=== PATIENT | male | born 1995 | race Caucasian/White ===

== ENCOUNTER 2017-03-31 23:12 | Inpatient (IN) | payer BC ==
[~2017-03-31] VITALS: Ht 180.3 cm; Wt 61.2 kg
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
[2017-04-01 00:07] LABS: URINE APPEARANCE CLEAR (CLEAR); URINE BILIRUBIN NEG (NEG); URINE COLOR YELLOW; URINE NITRITE NEG (NEG); URINE SPECIFIC GRAVITY 1.031 (1.000-1.030); UROBILINOGEN NEG (NEG); ZZUR CULT IF INDIC CLEAN CATCH NO
[2017-04-01] MEDS ORDERED: MINO75CA2 PO (00:07)
[2017-04-01 00:16] LABS: MANUAL MICROSCOPIC REQUIRED? NO; REVIEW REQ? NO
[2017-04-01 00:24] LABS: BENZODIAZEPINE, URINE NEG (NEG); COCAINE,URINE NEG (NEG); PHENCYCLIDINE, URINE NEG (NEG)
[2017-04-01 00:32] LABS: BASO % 0.2 %; BASO ABS # 0.02 K/uL (0-0.2); COMPLETE YES; EOS % 0.3 %; HEMATOCRIT 43.6 % (42-52); IG% 0.2 %; LYMPH % 15.3 %; LYMPH ABS # 1.87 K/uL (1.2-3.4); MEAN CELL VOLUME 89.9 fL (80-100); MEAN CORPUSCULAR HEMOGLOBIN 31.1 pg (25-34); MEAN CORPUSCULAR HGB CONC 34.6 g/dl (32-36); MEAN PLATELET VOLUME 11.2 fL (7.4-10.4); MONO % 7.1 %; NEUT % 76.9 %; PLATELET COUNT 223 K/uL (130-400); RED BLOOD COUNT 4.85 M/uL (4.7-6.1); WHITE BLOOD COUNT 12.24 K/uL (4.8-10.8)
[2017-04-01 00:55] LABS: BUN/CREATININE RATIO 20.4 (10-20); CALCIUM 9.3 mg/dl (8.5-10.1); CREATININE 1.01 mg/dl (0.60-1.40); POTASSIUM 3.4 mmol/L (3.5-5.1)
[2017-04-01 01:05] LABS: ACETAMINOPHEN < 2 ug/ml (10-30)
[2017-04-01 01:06] LABS: ALB/GLOB RATIO 1.2 (0.9-2); THYROID STIMULATING HORMONE 1.22 uIu/ml (0.300-4.500)
[2017-04-01] MEDS ORDERED: NURSING VERBAL MED ORDER ONE (02:00)
[2017-04-01 02:13] VITALS: O2SAT 96
[2017-04-01 02:47] VITALS: BP 124/63; PULSE 78; TEMP 36.7; Ht 180.3 cm; Wt 61.2 kg
[2017-04-01] MEDS ORDERED: hydrOXYzine HCL 25 MG TAB PO PRN ×2 (03:30)
[2017-04-01] MEDS ORDERED: ACETAMINOPHEN 325 MG TAB PO PRN (03:30)
[2017-04-01] MEDS ORDERED: MAGNESIUM HYDROXIDE SUSP 30 ML UDC PO PRN (03:30)
[2017-04-01] MEDS ORDERED: ALUMINUM/MAGNESIUM SUSP 30 ML UDC PO PRN (03:30)
[2017-04-01] MEDS ORDERED: BISMUTH SUBSALICYLATE PER ML OMNICELL CHARGE PO PRN (03:30)
[2017-04-01] MEDS ORDERED: SODIUM CHLORIDE 0.65% NA SOLN 45 ML (OCEAN) PRN (03:30)
[2017-04-01 06:59] VITALS: BP_SYST 109; BP_SYST 121; BP_DIAS 58; BP_DIAS 72; PULSE 116; PULSE 63; TEMP 36.8
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
[2017-04-01] MEDS ORDERED: NICOTINE POLACRILEX 2 MG GUM MT PRN (11:45)
[2017-04-02 07:06] VITALS: BP_SYST 106; BP_SYST 98; BP_DIAS 63; BP_DIAS 72; PULSE 83; PULSE 91; TEMP 36.6
--- NOTE | 2017-04-02 10:42 | Psychiatric Progress Notes ---
Progress Note Date of Service Apr 02, 2017. Interval History 21-year-old man who came here from [place] to confront a girlfriend who broke up with him. He did something similar several days ago and left a letter indicating he would commit suicide. He is admitted voluntarily. Chief Complaint "Tired.". Subjective Patient was seen & assessed interval progress reviewed with Treatment Team. The patient says that he is tired today and is generally always tired. He denies depression or suicidality and says that he is not thinking about his ex girlfriend. I review with him, the information obtained from his mother and therapist indicating that his problems with anger and depression have been ongoing. He is no more forthcoming today than he was yesterday and does not engage in meaningful discussion. I review recommendations for an antidepressant and ask for his opinion, "I'm not the doctor.". He reports good sleep and appetite and is interested in getting a shower today. He talked with his mother by phone yesterday, but will say nothing about the conversation. She will not be travelling here to visit him and he will be taking a bus home at discharge. he has submitted his 72 hr notice to withdraw from treatment. Review of Systems Constitutional: + fatigue ENT: No hearing loss, No unusual epistaxis, No nasal symptoms, No sore throat, No tinnitus, No dental problems, No trouble swallowing, No problem reported Respiratory: No cough, No sputum, No wheezing, No shortness of breath, No dyspnea on exertion, No dyspnea at rest, No hemoptysis, No problem reported Cardiovascular: No chest pain, No orthopnea, No PND, No edema, No claudication , No palpitations, No problem reported Abdomen: No pain, No nausea, No vomiting, No diarrhea, No constipation, No GI bleeding, No problem reported Musculoskeletal: No joint pain, No muscle pain, No swelling, No calf pain, No problem reported Neurologic: No memory loss, No paralysis, No weakness, No numbness/tingling, No vertigo, No balance problems, No problem reported Psychiatric: No depression symptoms, No anhedonism, No anxiety, No insomnia, No substance abuse, No problem reported Integumentary: No rash, No itch, No new/changing skin lesions, No color change , No bleeding, No problem reported Sleep Information Total Hours of Sleep: 6.00 Meal Information Percent of Breakfast Consumed: 0 Percent of Lunch Consumed: 75 Percent of Dinner Consumed: 100 Mental Status Exam During interview pt is: alert and oriented, guarded Appearance: appropriately dressed Eye contact is: fair Motor behavior is: steady gait & station, no abnormal motor movements Speech: normal in rate, rhythm & volume Affect: flat Mood is: depressed, irritable Thought process: goal directed Thought content: reality based without delusions Suicidal thought are: present, Plan: denied, Intent: denied Homicidal thoughts are: denied Hallucinations: denies auditory, denies visual Cognition: memory grossly intact, attention grossly intact, language grossly intact Intelligence estimated to be: average Insight: impaired Judgement: impaired Impression Patient still resistant to treatment and not forthcoming. He has however agreed to a trial of zoloft which we will start today at 25 mg. R/B/A reviewed and accepted including black box warning. He has submitted his 72 hr notice which will on 04/04. I do not anticipate that he will need hospitalization beyond that point, and will need to help him explore the bus schedule back to [place] as well as arrange OP. Plan (1) unspecified depressive disorder 04/01 -The patient is sullen and poorly cooperative with interview. We will need to gather additional data from family and therapist - No medication recommendations at this time - Every 15 minute checks for safety - Encourage participation in group and individual counseling - Family meeting if indicated - Coordinate aftercare with current therapist 04/02 - Start Zoloft 25 mg. today increasing to 50 mg. tomorrow - Will need OP psychiatric prescriber - Staff to assist in exploring the bus schedule home. (2) Tobacco use disorder 04/01 - Advised to reduce or abstain from smoking Will offer nicotine patch or Nicorette gum if desired- Dr. Angela Woodruff is personally participated in the review and development of these recommendations. Discharge / Aftercare Planning Primary Care Physician: Name: Dr. Jarquin [facility]: Apr 06, 2017 Time of Appointment: 6 p.m. Head Porter: Name: Rachel Visit Code E&M Code: 87718 Inventory Assets Strengths: Has a job, lives with parents Needs: To learn coping strategies, better boundaries in relationships Risk Factors Assessment Male: Yes : Yes /single/: Yes Higher / Fall in social status: No Health problems: No Mental Health Diagnoses: Yes Substance use disorders: Yes (history of) Previous attempt: No Family history of suicide: No Previous psychiatric stay: No Smoker: Yes Protective Factors Assessment Methodist beliefs: No : No Responsible for young children: No Employed: Yes Stable relationships: No Data Vital Signs Last 24 Hrs: Date Time Temp Pulse Resp B/P (MAP) Pulse Ox O2 Delivery O2 Flow Rate FiO2 04/02/17 07:06 36.6 83 16 98/63 91 106/72 Meds Administered Last 24 Hrs: Current Inpatient Medications Medications (Trade) Dose Ordered Sig/Heidi Route Start Time Stop Time Status Last Admin Dose Admin Acetaminophen (Tylenol Tab) 650 mg Q4H PRN PO 04/01/17 03:30 05/01/17 03:29 Al Hydroxide/Mg Hydroxide (Maalox Susp) 30 ml Q4H PRN PO 04/01/17 03:30 05/01/17 03:29 Bismuth Subsalicylate (Kaopectate Liqd) 15 ml DAILY PRN PO 04/01/17 03:30 05/01/17 03:29 Magnesium Hydroxide (Milk Of Magnesia Susp) 30 ml DAILY PRN PO 04/01/17 03:30 05/01/17 03:29 Sodium Chloride ([place] Nasal [place]) PRN PRN NA 04/01/17 03:30 05/01/17 03:29 Hydroxyzine HCl (Vistaril Tab) 50 mg HSZ PRN PO 04/01/17 03:30 05/01/17 03:29 Hydroxyzine HCl (Vistaril Tab) 25 mg Q4H PRN PO 04/01/17 03:30 05/01/17 03:29 Nicotine Polacrilex (Nicorette 2MG Gum) 1 piece Q1H PRN MT 04/01/17 11:45 05/01/17 11:44 Lab Results Last 24 Hrs: 03/31/17 23:58 Red Blood Count 4.85, Mean Corpuscular Volume 89.9, Mean Corpuscular Hemoglobin 31.1, Mean Corpuscular Hemoglobin Concent 34.6, Mean Platelet Volume 11.2, Neutrophils (%) (Auto) 76.9, Lymphocytes (%) (Auto) 15.3, Monocytes (%) (Auto) 7.1, Eosinophils (%) (Auto) 0.3, Basophils (%) (Auto) 0.2, Neutrophils # (Auto) 9.42, Lymphocytes # (Auto) 1.87, Monocytes # (Auto) 0.87, Eosinophils # (Auto) 0.04, Basophils # (Auto) 0.02 03/31/17 23:58 Test 03/31/17 23:29 03/31/17 23:58 Urine Color YELLOW Urine Appearance CLEAR (CLEAR) Urine pH 5.0 (4.5-7.5) Urine Specific [place] 1.031 (1.000-1.030) Urine Protein 2+ (NEG) Urine Glucose (UA) NEG (NEG) Urine Ketones TRACE (NEG) Urine Occult Blood NEG (NEG) Urine Nitrite NEG (NEG) Urine Bilirubin NEG (NEG) Urine Urobilinogen NEG (NEG) Urine Leukocyte Esterase NEG (NEG) Urine WBC (Auto) 1-5 /hpf (0-5) Urine RBC (Auto) 0-4 /hpf (0-4) Urine Hyaline Casts (Auto) 1-5 /lpf (0-5) Urine Epithelial Cells (Auto) 5-10 /lpf (0-5) Urine Bacteria (Auto) NEG (NEG) Urine Opiates Screen NEG (NEG) Urine Methadone, Qualitative NEG (NEG) Urine Barbiturates NEG (NEG) Urine Phencyclidine (PCP) Level NEG (NEG) Ur Amphetamine/Methamphetamine NEG (NEG) MDMA (Ecstasy) Screen NEG (NEG) Urine Benzodiazepines Screen NEG (NEG) Urine Cocaine Metabolite NEG (NEG) Urine Marijuana (THC) NEG (NEG) White Blood Count 12.24 K/uL (4.8-10.8) Red Blood Count 4.85 M/uL (4.7-6.1) Hemoglobin 15.1 g/dL (14.0-18.0) Hematocrit 43.6 % (42-52) Mean Corpuscular Volume 89.9 fL (80-100) Mean Corpuscular Hemoglobin 31.1 pg (25-34) Mean Corpuscular Hemoglobin Concent 34.6 g/dl (32-36) Platelet Count 223 K/uL (130-400) Mean Platelet Volume 11.2 fL (7.4-10.4) Neutrophils (%) (Auto) 76.9 % Lymphocytes (%) (Auto) 15.3 % Monocytes (%) (Auto) 7.1 % Eosinophils (%) (Auto) 0.3 % Basophils (%) (Auto) 0.2 % Neutrophils # (Auto) 9.42 K/uL (1.4-6.5) Lymphocytes # (Auto) 1.87 K/uL (1.2-3.4) Monocytes # (Auto) 0.87 K/uL (0.11-0.59) Eosinophils # (Auto) 0.04 K/uL (0-0.5) Basophils # (Auto) 0.02 K/uL (0-0.2) RDW Standard Deviation 43.4 fL (36.4-46.3) RDW Coefficient of Variation 13.3 % (11.5-14.5) Immature Granulocyte % (Auto) 0.2 % Immature Granulocyte # (Auto) 0.02 K/uL (0.00-0.02) Anion Gap 5.0 mmol/L (3-11) Est Creatinine Clear Calc Drug Dose 103.6 ml/min Estimated GFR () 123.5 Estimated GFR (Non- 106.6 BUN/Creatinine Ratio 20.4 (10-20) Calcium Level 9.3 mg/dl (8.5-10.1) Total Bilirubin 0.5 mg/dl (0.2-1) Aspartate Amino Transf (AST/SGOT) 18 U/L (15-37) Alanine Aminotransferase (ALT/SGPT) 24 U/L (12-78) Alkaline Phosphatase 66 U/L (45-117) Total Protein 8.1 gm/dl (6.4-8.2) Albumin 4.4 gm/dl (3.4-5.0) Globulin 3.7 gm/dl (2.5-4.0) Albumin/Globulin Ratio 1.2 (0.9-2) Thyroid Stimulating Hormone (TSH) 1.220 uIu/ml (0.300-4.500) Salicylates Level < 1.7 mg/dl (2.8-20) Acetaminophen Level < 2 ug/ml (10-30) Ethyl Alcohol mg/dL < 3.0 mg/dl (0-3)
[2017-04-02] MEDS ORDERED: SERTRALINE HCL 50 MG TAB PO ONE (11:15)
[2017-04-03 06:51] VITALS: BP_SYST 110; BP_SYST 97; BP_DIAS 61; BP_DIAS 70; PULSE 65; PULSE 96; TEMP 36.5
[2017-04-03] MEDS ORDERED: SERTRALINE HCL 50 MG TAB PO SCH (09:00)
[2017-04-03] MEDS ORDERED: ZLF50 PO (09:10)
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
== END 2017-04-03 17:15 | disposition home or self-care (01) | DRG 881 ==
LOC: C.EDB 23:15 → C.MHU 04-01 01:51
PROVIDERS: ADMIT Psychiatry & Neurology Psychiatry; ATTEND Psychiatry & Neurology Psychiatry
DX: F32.9 Major depressive disorder, single episode, unspecified (principal); R45.851 Suicidal ideations; F17.200 Nicotine dependence, unspecified, uncomplicated